=== PATIENT | female | born 1990 | race African-American/Black ===

== ENCOUNTER 2017-02-05 11:49 | Emergency (ER) | payer MEDICAID ==
[2017-02-05] MEDS ORDERED: ONDANSETRON 4 MG TAB.RAPDIS PO ONE (12:10)
--- NOTE | 2017-02-05 12:11 | ER Document Report ---
ED Medical Screen (RME) - General Chief Complaint: Nausea/Vomiting Stated Complaint: STOMACH PAIN Time Seen by Provider: 02/05/17 12:02 Notes: Patient states that she has nausea and vomiting. Abdominal pain. Not sure if she is . Symptoms were very similar when she was with her son. Has had a new partner. They have been together for about 6 months. Having abdominal and pelvic discomfort with increased mental discharge as well. States that the vomiting is getting worse. Cannot keep anything down. TRAVEL OUTSIDE OF THE [place] IN LAST 30 DAYS: No - HPI Onset: Yesterday Onset/Duration: Gradual, Constant, Worse Quality of pain: Achy Severity: Mild Pain Level: 1 Associated Symptoms: Abdominal pain, Vomiting, Other - Vaginal discharge Exacerbated by: Denies Relieved by: Denies Similar symptoms previously: Yes Recently seen / treated by doctor: No - Related Data Allergies/Adverse Reactions: No Known Allergies Allergy (Verified 02/05/17 11:51) Past Medical History - Social History Chew tobacco use (# tins/day): No Frequency of alcohol use: None Drug Abuse: None Renal/ Medical History: Denies: Hx Peritoneal Dialysis Physical Exam - Vital signs Vitals: Temp Pulse Resp BP Pulse Ox 98.0 F 56 L 20 137/60 H 99 02/05/17 11:52 02/05/17 11:52 02/05/17 11:52 02/05/17 11:52 02/05/17 11:52 Interpretation: Normal - General General appearance: Appears well In distress: None - Respiratory Respiratory status: No respiratory distress Breath sounds: Normal - Cardiovascular Rhythm: Regular Heart sounds: Normal auscultation - Abdominal Inspection: Normal Bowel sounds: Normal Tenderness: Tender - Mild diffuse. No guarding or rebound Course - Re-evaluation Re-evalutation: 02/05/17 12:09 I have greeted and performed a rapid initial assessment of this patient. Orders have been placed. A comprehensive ED assessment and evaluation of the patient, analysis of test results and completion of the medical decision making process will be conducted by additional ED providers. 02/05/17 12:11 - Vital Signs Vital signs: Temp Pulse Resp BP Pulse Ox 98.0 F 56 L 20 137/60 H 99 02/05/17 11:52 02/05/17 11:52 02/05/17 11:52 02/05/17 11:52 02/05/17 11:52
[2017-02-05] MEDS ORDERED: NORMAL SALINE 1000 ML 1,000 ML IV ONE (12:35)
[2017-02-05] MEDS ORDERED: ONDANSETRON HCL INJ/PF 4 MG/2 ML SDV IV ONE (12:35)
--- NOTE | 2017-02-05 12:35 | ER Document Report ---
ED GI/ - General Mode of Arrival: Ambulatory Information source: Patient TRAVEL OUTSIDE OF THE [place] IN LAST 30 DAYS: No <CHATO DELUCA - Last Filed: 02/05/17 12:38> <LINDSEY MEDINA - Last Filed: 02/05/17 16:05> - General Chief Complaint: Nausea/Vomiting Stated Complaint: STOMACH PAIN Time Seen by Provider: 02/05/17 12:02 Notes: Patient is a 26-year-old female who presents to the emergency department today with complaints of a 4 day duration of vomiting. Patient states that every time she eats and drinks she vomits shortly after. Patient states her lower abdominal pain began before the vomiting. Patient's last menstrual period was January 02, she is . Patient also mentions that she has had vaginal discharge for 1 week. Patient goes on to mention that vaginal discharge is normal for her however the discharge currently is "more creamy" than usual. Patient states she is constipated. Patient denies any diarrhea or dysuria. ( CHATO DELUCA) - Related Data Allergies/Adverse Reactions: No Known Allergies Allergy (Verified 02/05/17 11:51) Past Medical History - General Information source: Patient - Social History Smoking Status: Smoker,Current Status Unk Cigarette use (# per day): No Chew tobacco use (# tins/day): No Frequency of alcohol use: None Drug Abuse: None Lives with: Family Family History: Reviewed & Not Pertinent Patient has suicidal ideation: No Patient has homicidal ideation: No Pulmonary Medical History: Reports: Hx Asthma Past Surgical History: Reports: Hx Oral Surgery - wisdom teeth <CHATO DELUCA - Last Filed: 02/05/17 12:38> Review of Systems - Review of Systems Constitutional: No symptoms reported EENT: No symptoms reported Cardiovascular: No symptoms reported Respiratory: No symptoms reported Gastrointestinal: See HPI, Abdominal pain, Nausea, Vomiting, Constipation. denies: Diarrhea Genitourinary: See HPI, Discharge. denies: Dysuria Female Genitourinary: Last menstrual period - Jan 02 Musculoskeletal: No symptoms reported Skin: No symptoms reported Hematologic/Lymphatic: No symptoms reported Neurological/Psychological: No symptoms reported -: Yes All other systems reviewed and negative <CHATO DELUCA - Last Filed: 02/05/17 12:38> Physical Exam <CHATO DELUCA - Last Filed: 02/05/17 12:38> <LINDSEY MEDINA - Last Filed: 02/05/17 16:05> - Vital signs Vitals: Temp Pulse Resp BP Pulse Ox 98.0 F 56 L 20 137/60 H 99 02/05/17 11:52 02/05/17 11:52 02/05/17 11:52 02/05/17 11:52 02/05/17 11:52 - Notes Notes: Physical Exam: General: Alert, appears well. HEENT: Normocephalic. Atraumatic. PERRL. Extraocular movements intact. Oropharynx clear. Neck: Supple. Non-tender. Respiratory: No respiratory distress. Clear and equal breath sounds bilaterally. Cardiovascular: Regular rate and rhythm. Abdominal: Lower abdominal tenderness with palpation, RLQ is more tender than LLQ. Suprapubic tenderness with palpation. No distension. Normal Bowel Sounds. Back: Non-tender. No deformity or step off. Extremities: Moves all four extremities. Upper extremities: Normal inspection. Normal ROM. Lower extremities: Normal inspection. No edema. Normal ROM. Neurological: Normal cognition. AAOx4. Normal speech. Psychological: Normal affect. Normal Mood. Skin: Warm. Dry. Normal color. (CHATO DELUCA) Course - Laboratory Result Diagrams: 02/05/17 12:20 02/05/17 12:20 <CHATO DELUCA - Last Filed: 02/05/17 12:38> - Laboratory Result Diagrams: 02/05/17 12:20 02/05/17 12:20 - Diagnostic Test Radiology reviewed: Image reviewed, Reports reviewed - Ultrasound shows a 5 week 6 day intrauterine with a heart rate of 99. There are 2 small subchorionic bleed areas identified. The left ovary is unremarkable, the right ovary is not visualized but there are no abnormalities in that region seen. <LINDSEY MEDINA - Last Filed: 02/05/17 16:05> - Vital Signs Vital signs: Temp Pulse Resp BP Pulse Ox 98.0 F 56 L 20 137/60 H 99 02/05/17 11:52 02/05/17 11:52 02/05/17 11:52 02/05/17 11:52 02/05/17 11:52 - Laboratory Laboratory results interpreted by me: 1102/05/17 02/05/17 12:20 12:20 12:20 Total Bilirubin 1.6 H Serum HCG, Qual POSITIVE H Beta HCG, Quant 20038.00 H Urine Protein Urine Ketones Urine Urobilinogen 02/05/17 13:14 Total Bilirubin Serum HCG, Qual Beta HCG, Quant Urine Protein 30 H Urine Ketones 80 H Urine Urobilinogen 2.0 H Discharge <CHATO DELUCA - Last Filed: 02/05/17 12:38> <LINDSEY MEDINA - Last Filed: 02/05/17 16:05> - Discharge Clinical Impression: 6 weeks gestation of , Dehydration, Pelvic pain affecting in first trimester, antepartum Subchorionic hemorrhage in first trimester Qualifiers: Fetus number: single or unspecified fetus Qualified Code(s): O41.8X10 - Other specified disorders of amniotic fluid and membranes, first trimester, not applicable or unspecified Nausea & vomiting Qualifiers: Vomiting type: unspecified Vomiting Intractability: non-intractable Qualified Code(s): R11.2 - Nausea with vomiting, unspecified Condition: Stable Disposition: HOME, SELF-CARE Additional Instructions: Hyperemesis Gravidarum Hyperemesis gravidarum is the medical term for severe vomiting during . We don't know exactly why it occurs, but it's a common problem. Dehydration can occur. This reduces blood flow to the placenta, decreasing the baby's nourishment. The baby will also become dehydrated. There can be harmful changes in blood sodium, potassium, or acid balance. Our goal is to correct, and prevent, dehydration. For severe cases, we give IV fluids. Antinausea medication will be prescribed. (Don't be concerned about " defects" -- the risk to you and your baby from the hyperemesis is the biggest problem. The antinausea medication is very safe at this stage of .) Call the doctor if you have vaginal bleeding, abdominal pain, severe lightheadedness or weakness, or other alarming symptoms. You are . care is best started as early in as possible. If you're unsure about continuing this , you should discuss this with your physician or with surgical manager at [facility]. You should take only medications approved by your physician. Acetaminophen can safely be taken for minor pains. As a rule, medication for chronic conditions such as asthma or seizures can safely be continued. You should discuss with the physician every medicine you take. Any regular exercise program can be continued. Talk to your physician, however, before engaging in competitive or demanding sports. Alcohol, smoking, and "street drugs" are dangerous to your baby. Cocaine is especially dangerous. Don't use any illicit drugs! Bleeding During Early Your ultrasound shows 2 small areas of subchorionic hemorrhage. This is bleeding that occurs around the attachment of the baby to the inner wall of the uterus. While we take this symptom very seriously, most women with your degree of bleeding will go on to have a perfectly normal baby. At this time, there is no indication that a miscarriage will occur. (A miscarriage occurs when the fetus is abnormal. There is no medicine or treatment to prevent it.) You should rest in bed until the pelvic pain resolves. Do not douche or have sex for at least a week, or until OK'd by the doctor. Don't use tampons. Call the doctor or return for re-examination if there is an increase in bleeding or cramping, extreme weakness, fainting, new abdominal pain, fever, or passage of tissue. //////////////////////////////////////////////////////////////////////////////// //////////////////////////////////////////////////////////////////////////////// ///////////////// Take the medication as prescribed for nausea and vomiting. Drink plenty of cool clear liquids. Rest. Take Tylenol for pain if needed. With the health department on Thursday to start your care. RETURN TO THE EMERGENCY ROOM IF ANY NEW OR WORSENING SYMPTOMS. Prescriptions: Metoclopramide HCl [Reglan 10 mg Tablet] 1 tab PO ASDIR PRN #20 tablet PRN Reason: Scribe Attestation: 02/05/17 13:43 I personally performed the services described in the documentation, reviewed and edited the documentation which was dictated to the scribe in my presence, and it accurately records my words and actions. (LINDSEY MEDINA) Scribe Documentation - Scribe Written by Scribe:: Tracy Lewis, 02/05/2017 1256 acting as scribe for :: Ana <CHATO DELUCA - Last Filed: 02/05/17 12:38>
[2017-02-05 12:38] LABS: ABSOLUTE EOSINOPHILS # (AUTO) 0.1 10^3/uL (0.0-0.6); ABSOLUTE LYMPHOCYTES (AUTO) 1.3 10^3/uL (0.5-4.7); ABSOLUTE MONOCYTES (AUTO) 0.5 10^3/uL (0.1-1.4); ABSOLUTE NEUT (AUTO) 4.6 10^3/uL (1.7-8.2); BASOPHILS % (AUTO) 0.2 % (0-2); EOSINOPHILS % (AUTO) 1.2 % (0-6); HEMATOCRIT 36.7 % (36.0-47.0); HEMOGLOBIN 12.1 g/dL (12.0-15.5); HGB HCT DIFFERENCE -0.4; LYMPHOCYTES % (AUTO) 19.6 % (13-45); MEAN CORPUSCULAR HEMOGLOBIN 28.2 pg (27.0-33.4); MEAN CORPUSCULAR VOLUME 86 fl (80-97); MONOCYTES % (AUTO) 7.8 % (3-13); RED BLOOD COUNT 4.29 10^6/uL (3.72-5.28); RED CELL DISTRIBUTION WIDTH 13.3 % (11.5-14.0); SEGMENTED NEUTROPHILS % (AUTO) 71.2 % (42-78); WHITE BLOOD COUNT 6.4 10^3/uL (4.0-10.5)
[2017-02-05 13:00] LABS: ALANINE AMINOTRANSFERASE 33 U/L (9-52); ALBUMIN 4.7 g/dL (3.5-5.0); ALKALINE PHOSPHATASE 94 U/L (38-126); ANION GAP 15 (5-19); ASPARTATE AMINO TRANSFERASE 16 U/L (14-36); BILIRUBIN,DIRECT 0.4 mg/dL (0.0-0.4); BILIRUBIN,TOTAL 1.6 mg/dL (0.2-1.3); BLOOD UREA NITROGEN 8 mg/dL (7-20); CALCIUM 9.7 mg/dL (8.4-10.2); CARBON DIOXIDE 25 mmol/L (22-30); CHLORIDE 101 mmol/L (98-107); CREATININE RESULT 0.64 mg/dL (0.52-1.25); GLUCOSE 81 mg/dL (75-110); LIPASE 31.4 U/L (23-300); POTASSIUM 3.7 mmol/L (3.6-5.0); SODIUM 140.6 mmol/L (137-145); TOTAL PROTEIN 7.9 g/dL (6.3-8.2)
[2017-02-05 13:19] LABS: ADD ON TESTING BLD IN LAB ACKNOWLEDGE
[2017-02-05 13:45] LABS: APPEARANCE,URINE SLIGHTLY-CLOUDY; BILIRUBIN,URINE NEGATIVE (NEGATIVE); GLUCOSE, URINE NEGATIVE (NEGATIVE); KETONES,URINE 80 mg/dL (NEGATIVE); LEUKOCYTE ESTERASE,URINE NEGATIVE (NEGATIVE); NITRITE,URINE NEGATIVE (NEGATIVE); PROTEIN,URINE 30 mg/dL (NEGATIVE); URINE SPECIFIC GRAVITY 1.029
[2017-02-05] MEDS ORDERED: DEXTROSE 5%-LACTATED RINGERS 1,000 ML IV ONE ×2 (13:53→15:11)
--- NOTE | 2017-02-05 14:38 | RADIOLOGY REPORT (SQ) ---
EXAM DESCRIPTION: U/S OB TRANSVAGINAL W/O DOP COMPLETED DATE/TIME: 02/05/2017 2:18 pm REASON FOR STUDY: Pelvic pain, vomiting COMPARISON: None TECHNIQUE: Transvaginal static and realtime grayscale images acquired of the pelvis. Additional chata cted spectral and color Doppler images recorded. All images stored on PACs. [id number] LIMITATIONS: None. FINDINGS: FETUS: Living intrauterine . EGA: 5 weeks 6 days AMINA: 10/02/2017 FHR: 99 beats per minute. SUBCHORIONIC BLEED: Yes SIZE OF BLEED: 2 areas. Largest 0.9 cm. UTERUS: No masses. No anomalies. CERVICAL LENGTH: 3 cm Closed. RIGHT ADNEXA: Ovary not identified. No adnexal free fluid. No adnexal masses. LEFT ADNEXA: Normal ovary with normal vascular flow. No adnexal free fluid. No adnexal masses. FREE FLUID: None. OTHER: No other significant finding. IMPRESSION: LIVING INTRAUTERINE . EGA 5 weeks 6 days. Subchorionic hemorrhage. Trimester of : First - 0 to 13 weeks. TECHNICAL DOCUMENTATION: JOB ID: [id number] [employer]- All Rights Reserved
[2017-02-05 15:04] LABS: CHLAM PCR NOT DETECTED (NOT DETECT)
[2017-02-05] MEDS ORDERED: METOCLOPRAMIDE HCL INJ/PF 10 MG/2 ML SDV IV ONE (15:21)
[2017-02-05 16:11] VITALS: BP 128/76
== END 2017-02-05 16:10 | disposition home or self-care (01) ==
LOC: ER 11:49
DX: O41.8X10 Other specified disorders of amniotic fluid and membranes, first trimester, not applicable or unspecified (principal); O21.9 Vomiting of pregnancy, unspecified; E86.0 Dehydration; R10.84 Generalized abdominal pain; R10.2 Pelvic and perineal pain; O99.331 Smoking (tobacco) complicating pregnancy, first trimester; Z3A.01 Less than 8 weeks gestation of pregnancy
CPT/HCPCS: 99284; 96361; 96374; 96375; 86900; 86901; 36415; 84702; 83690; 84703; 85025; 80053; 81001; 87491; 87591; 76817; S0119; J2765; J2405; J7030

== ENCOUNTER 2017-02-07 13:06 | Emergency (ER) | payer MEDICAID ==
[2017-02-07] MEDS ORDERED: NORMAL SALINE 1000 ML 1,000 ML IV ONE (13:40)
[2017-02-07 14:15] LABS: ABSOLUTE LYMPHOCYTES (AUTO) 1.1 10^3/uL (0.5-4.7); ABSOLUTE MONOCYTES (AUTO) 0.4 10^3/uL (0.1-1.4); ABSOLUTE NEUT (AUTO) 4.7 10^3/uL (1.7-8.2); BASOPHILS % (AUTO) 0.2 % (0-2); EOSINOPHILS % (AUTO) 0.7 % (0-6); HEMATOCRIT 36.6 % (36.0-47.0); HEMOGLOBIN 12.3 g/dL (12.0-15.5); HGB HCT DIFFERENCE 0.3; LYMPHOCYTES % (AUTO) 17.7 % (13-45); MEAN CORPUSCULAR HEMOGLOBIN 28.7 pg (27.0-33.4); MEAN CORPUSCULAR HGB CONC 33.7 g/dL (32.0-36.0); MEAN CORPUSCULAR VOLUME 85 fl (80-97); MONOCYTES % (AUTO) 6.8 % (3-13); RED CELL DISTRIBUTION WIDTH 13.3 % (11.5-14.0); SEGMENTED NEUTROPHILS % (AUTO) 74.6 % (42-78); WHITE BLOOD COUNT 6.3 10^3/uL (4.0-10.5)
[2017-02-07 14:30] LABS: ALANINE AMINOTRANSFERASE 29 U/L (9-52); ALBUMIN 4.6 g/dL (3.5-5.0); ALKALINE PHOSPHATASE 85 U/L (38-126); ANION GAP 16 (5-19); ASPARTATE AMINO TRANSFERASE 15 U/L (14-36); BILIRUBIN,DIRECT 0.4 mg/dL (0.0-0.4); BILIRUBIN,TOTAL 1.4 mg/dL (0.2-1.3); BLOOD UREA NITROGEN 6 mg/dL (7-20); CALCIUM 9.8 mg/dL (8.4-10.2); CARBON DIOXIDE 26 mmol/L (22-30); CHLORIDE 99 mmol/L (98-107); CREATININE RESULT 0.63 mg/dL (0.52-1.25); GLUCOSE 83 mg/dL (75-110); LIPASE 29.6 U/L (23-300); POTASSIUM 3.7 mmol/L (3.6-5.0); SODIUM 141.4 mmol/L (137-145); TOTAL PROTEIN 7.9 g/dL (6.3-8.2)
[2017-02-07] MEDS ORDERED: PROCHLORPERAZINE EDISYLATE INJ 10 MG/2 ML VIAL IV ONE (15:05)
[2017-02-07] MEDS ORDERED: ACETAMINOPHEN 325 MG TABLET PO ONE (15:08)
[2017-02-07 15:15] VITALS: BP 111/73
--- NOTE | 2017-02-07 15:16 | ER Document Report ---
ED General - General Chief Complaint: Abdominal Pain Stated Complaint: ABDOMINAL PAIN Time Seen by Provider: 02/07/17 13:37 TRAVEL OUTSIDE OF THE [place] IN LAST 30 DAYS: No - HPI Patient complains to provider of: Abdominal pain nausea vomiting Notes: Patient was seen approximate 2 days ago for abdominal pain nausea vomiting had ultrasounds confirming IUP. Patient states pain is continued no change in pain however continues to have nausea vomiting therefore came back into the ER. Patient states no relief of medication prescribed upon last visit. Denies any fever chills chest pain vaginal discharge vaginal bleeding. Patient is resting comfortably no signs of obvious distress upon my evaluation. - Related Data Allergies/Adverse Reactions: No Known Allergies Allergy (Verified 02/07/17 13:13) Past Medical History - Social History Smoking Status: Never Smoker Chew tobacco use (# tins/day): No Frequency of alcohol use: None Drug Abuse: None Family History: Reviewed & Not Pertinent Patient has suicidal ideation: No Patient has homicidal ideation: No Pulmonary Medical History: Reports: Hx Asthma Renal/ Medical History: Denies: Hx Peritoneal Dialysis Past Surgical History: Reports: Hx Oral Surgery - wisdom teeth Review of Systems - Review of Systems Constitutional: No symptoms reported EENT: No symptoms reported Cardiovascular: No symptoms reported Respiratory: No symptoms reported Gastrointestinal: Abdominal pain, Diarrhea, Nausea, Vomiting Genitourinary: No symptoms reported Female Genitourinary: No symptoms reported Musculoskeletal: No symptoms reported Skin: No symptoms reported Hematologic/Lymphatic: No symptoms reported Neurological/Psychological: No symptoms reported Physical Exam - Vital signs Vitals: Temp Pulse Resp BP Pulse Ox 98.6 F 58 L 16 133/68 H 100 02/07/17 13:09 02/07/17 13:09 02/07/17 13:09 02/07/17 13:09 02/07/17 13:09 Interpretation: Normal - General General appearance: Appears well, Alert - HEENT Head: Normocephalic, Atraumatic Eyes: Normal Pupils: PERRL - Respiratory Respiratory status: No respiratory distress Chest status: Nontender Breath sounds: Normal Chest palpation: Normal - Cardiovascular Rhythm: Regular Heart sounds: Normal auscultation Murmur: No - Abdominal Inspection: Normal Distension: No distension Bowel sounds: Normal Tenderness: Nontender Organomegaly: No organomegaly - Back Back: Normal, Nontender - Extremities General upper extremity: Normal inspection, Nontender, Normal color, Normal ROM , Normal temperature General lower extremity: Normal inspection, Nontender, Normal color, Normal ROM , Normal temperature, Normal weight bearing. No: Nirav's sign - Neurological Neuro grossly intact: Yes Cognition: Normal Orientation: AAOx4 Santos Coma Scale Eye Opening: Spontaneous Santos Coma Scale Verbal: Oriented Santos Coma Scale Motor: Obeys Commands Santos Coma Scale Total: 15 Speech: Normal Motor strength normal: LUE, RUE, LLE, RLE Sensory: Normal - Psychological Associated symptoms: Normal affect, Normal mood - Skin Skin Temperature: Warm Skin Moisture: Dry Skin Color: Normal Course - Re-evaluation Re-evalutation: 02/07/17 18:54 The patient presents with abdominal pain nausea vomiting without signs of peritonitis or other life-threatening or serious etiology. The patient appears stable for discharge and has been instructed to return immediately if the symptoms worsen in any way, or in 8-12hr if not improved for re-evaluation. The patient has been instructed to return if the symptoms worsen or change in any way. - Vital Signs Vital signs: Temp Pulse Resp BP Pulse Ox 98.7 F 60 18 111/73 100 02/07/17 15:14 02/07/17 15:14 02/07/17 15:14 02/07/17 15:14 02/07/17 15:14 - Laboratory Result Diagrams: 02/07/17 13:55 02/07/17 13:55 Laboratory results interpreted by me: 02/07/17 13:55 BUN 6 L Total Bilirubin 1.4 H Discharge - Discharge Clinical Impression: Pelvic pain affecting in first trimester, antepartum Nausea & vomiting Qualifiers: Vomiting type: unspecified Vomiting Intractability: unspecified Qualified Code( s): R11.2 - Nausea with vomiting, unspecified Condition: Good Disposition: HOME, SELF-CARE Instructions: Nausea or Vomiting, Nonspecific ([facility]), Pelvic Pain in ( [facility]), ([facility]) Additional Instructions: Your laboratory studies today do not show any signs of critical pathology. Please take medication for nausea he also try them below for nausea control. Please follow-up with [facility] or the health department for further evaluation. For nausea and vomiting during I recomment: Start with 10-12.5 mg of pyridoxine (vitamin B6) three times a day for 2 days. If not fully effective, Increase to 12.5 mg of pyridoxine four times a day for 2 days. If not fully effective, Increase to 25 mg of pyridoxine three times a day for 2 days. If not fully effective, Continue 25 mg pyridoxine 3 times a day, and add 12.5 mg of doxylamine before bedtime each day for 2 days. If not fully effective, Continue 25 mg pyridoxine 3 times a day, and take 12.5 mg of doxylamine twice a day. If not fully effective, Continue 25 mg pyridoxine 3 times a day, and take 12.5 mg of doxylamine three times a day. If not fully effective, Continue 25 mg pyridoxine 3 times a day, and 12.5 mg of doxylamine 3 times a day , while adding Emetrol, one to two tablespoons (15-30 cc) taken once or twice a day as needed. (Emetrol is an [id number] mixture of sugar syrups and phosphoric acid [phosphorylated carbohydrate solution]) that acts by soothing the actual wall of the gastrointestinal tract). If not fully effective, Consult with your doctor. Prescriptions: Promethazine HCl [Phenergan 25 mg Supp.rect] 1 supp CO Q6H #12 supp.rect Forms: Return to Work
== END 2017-02-07 15:19 | disposition home or self-care (01) ==
LOC: ER 13:06
DX: O26.91 Pregnancy related conditions, unspecified, first trimester (principal); R10.2 Pelvic and perineal pain; O21.9 Vomiting of pregnancy, unspecified; Z3A.00 Weeks of gestation of pregnancy not specified
CPT/HCPCS: 99284; 96361; 96374; 36415; 83690; 85025; 80053; J0780; J7030

== ENCOUNTER 2017-02-09 20:56 | Emergency (ER) | payer SELFPAY ==
[2017-02-10] MEDS ORDERED: ONDANSETRON HCL INJ/PF 4 MG/2 ML SDV IV ONE (00:21)
[2017-02-10] MEDS ORDERED: NORMAL SALINE 1000 ML 1,000 ML IV PRN (00:21)
[2017-02-10] MEDS ORDERED: MINERAL OIL 30 ML UDCUP PR ONE (00:22)
--- NOTE | 2017-02-10 00:22 | ER Document Report ---
ED GI/ - General Chief Complaint: Vomiting Stated Complaint: VOMITING Time Seen by Provider: 02/09/17 23:50 Notes: Patient is a 6 week 3 day 26-year-old female who returns emergency department complaining of nausea, vomiting and constipation. Patient states that her last normal bowel movement was 2 weeks ago. States she has not been passing gas. States she has been previously evaluated here twice and discharged home with nausea medication but she has not filled any of her prescriptions due to expense out of pocket. Patient is not from the area. She is medicated up in [place] and is due to [facility] otherwise denies any fever, chills. States that she still able to urinate, denies any hematuria, pyuria, urinary frequency, retention. TRAVEL OUTSIDE OF THE [place].S[place] IN LAST 30 DAYS: No - Related Data Allergies/Adverse Reactions: No Known Allergies Allergy (Verified 02/09/17 21:12) Past Medical History - Social History Smoking Status: Never Smoker Family History: Reviewed & Not Pertinent Patient has suicidal ideation: No Patient has homicidal ideation: No Pulmonary Medical History: Reports: Hx Asthma Renal/ Medical History: Denies: Hx Peritoneal Dialysis Past Surgical History: Reports: Hx Oral Surgery - wisdom teeth Review of Systems - Review of Systems Constitutional: No symptoms reported EENT: No symptoms reported Cardiovascular: No symptoms reported Respiratory: No symptoms reported Gastrointestinal: See HPI Female Genitourinary: No symptoms reported -: Yes All other systems reviewed and negative Physical Exam - Vital signs Vitals: Temp Pulse Resp BP Pulse Ox 99.1 F 82 18 132/91 H 98 02/09/17 21:13 02/09/17 21:13 02/09/17 21:13 02/09/17 21:13 02/09/17 21:13 - Notes Notes: PHYSICAL EXAM GENERAL: Alert, interacts well. ENT: Oral mucosa moist, tongue midline. NECK: Full range of motion. Supple. Trachea midline. LUNGS: Clear to auscultation bilaterally, no wheezes, rales, or rhonchi. No respiratory distress. HEART: Regular rate and rhythm. No murmurs, gallops, or rubs. ABDOMEN: Soft, nondistended, mild epigastric tenderness. No guarding, rebound, or rigidity.. Bowel sounds present in all 4 quadrants. EXTREMITIES: Moves all 4 extremities spontaneously. No edema, radial and dorsalis pedis pulses 2/4 bilaterally. No cyanosis. NEUROLOGICAL: Alert and oriented x4. Normal speech. PSYCH: Normal affect, normal mood. SKIN: Warm, dry, normal turgor. No rashes or lesions noted. Course - Re-evaluation Re-evalutation: 02/10/17 03:35 Patient is a 26-year-old female who is hemodynamically stable, no acute distress and afebrile. Patient returns again with nausea and vomiting since she has not been able to fill her prescriptions for antinausea medication. Patient was able to have a bowel movement after enema in the department and states she feels much better. Discussed with her a plan for clear liquid diet for a couple of days to allow for bowel rest and to utilize antinausea medication. Patient to follow-up with her [employer] on February 14 when she returns home to [place]. Otherwise patient is tolerating p.o. without any difficulty and is stable for discharge home. - Vital Signs Vital signs: Temp Pulse Resp BP Pulse Ox 98.2 F 64 17 109/65 100 02/10/17 04:18 02/10/17 04:18 02/10/17 04:18 02/10/17 04:18 02/10/17 04:18 - Laboratory Result Diagrams: 02/10/17 01:00 02/10/17 01:00 Laboratory results interpreted by me: 02/10/17 02/10/17 01:00 01:00 WBC 11.1 H Seg Neutrophils % 86.0 H Lymphocytes % 7.5 L Absolute Neutrophils 9.5 H Carbon Dioxide 20 L Anion Gap 22 H Glucose 70 L Calcium 10.3 H Total Bilirubin 1.7 H Direct Bilirubin 0.5 H Total Protein 8.9 H Albumin 5.3 H Beta HCG, Quant 133359.00 H Discharge - Discharge Clinical Impression: Nausea & vomiting Qualifiers: Vomiting type: unspecified Vomiting Intractability: non-intractable Qualified Code(s): R11.2 - Nausea with vomiting, unspecified Condition: Good Disposition: HOME, SELF-CARE Instructions: Antinausea Medication ([facility]) Additional Instructions: ABDOMINAL PAIN: There are many causes of abdominal pain. Pain can mean a serious problem requiring surgery (such as appendicitis). It can also be an innocent problem that goes away on its own (such as a viral infection). Often, time must pass to determine the cause of pain. The physician does not feel that hospitalization is necessary, at present. Things may change within the next 24 hours. Call the doctor or come back for re- examination if any problems occur, such as: (1) Pain that becomes more severe, steady, or becomes concentrated in one specific area. Also, pain that is more severe with movement or coughing. (2) Vomiting that persists or becomes more frequent. (3) Blood in the vomitus, urine, or bowel movements. Blood in the stool may have a tarry or black appearance. (4) Shaking chills or fever greater than 100 degrees F. (5) The abdomen becomes more distended or swollen. (6) Bowel movements cease. (7) Failure to improve as expected. NORMAL EXAM AND WORKUP: At this time, your examination and workup show no significant abnormality. No significant abnormal physical findings are noted. All laboratory, EKG, and imaging (x-ray, CT scans, ultrasound) studies that were ordered show no significant abnormality. Although your examination and all studies that were ordered showed no significant abnormal finding, there are no examinations and no studies that are 100% accurate. There is always the possibility that some abnormality could exist and not be detected with physical examination or within the limits and capabilities of laboratory and other studies. You should return or follow up as you were instructed on your visit today for further evaluation if your symptoms do not resolve. CONSTIPATION: Constipation is a common problem. It is especially likely as you get older. Constipation is a common cause of abdominal pain, but sometimes causes no symptoms at all. Causes of constipation include certain medications, dehydration, diets, inactivity, and low-fiber intake. Rarely, it can be a symptom of underlying disease. The physician has evaluated you for this. Avoid constipation by eating a diet high in fiber, fruits, and vegetables. Drink plenty of liquids. Get regular exercise. If possible, avoid constipating medicines like narcotic pain medication. Some vitamin tablets can cause constipation. Stool softeners may be needed for difficult cases. An excellent stool softener is Konsyl which is available at [employer], and [employer]. Just add a teaspoon to a glass of pineapple or orange juice daily or twice a day if needed. For acute constipation, Fleet's Enemas and Dulcolax suppositories are helpful. Chronic, manager intermediate use of laxatives or enemas is not a good idea. Your bowel may become dependant on them. You do not need to have a bowel movement every day. Many people do fine with a bowel movement every three or four days. You should call your doctor or return for re-evaluation if you pass blood in the stool, or if you develop fever or increasing abdominal pain. FOLLOW-UP CARE: If you have been referred to a physician for follow-up care, call the physician s office for an appointment as you were instructed or within the next two days. If you experience worsening or a significant change in your symptoms, notify the physician immediately or return to the Emergency Department at any time for re-evaluation.
[2017-02-10 01:14] LABS: ABSOLUTE LYMPHOCYTES (AUTO) 0.8 10^3/uL (0.5-4.7); ABSOLUTE MONOCYTES (AUTO) 0.7 10^3/uL (0.1-1.4); ABSOLUTE NEUT (AUTO) 9.5 10^3/uL (1.7-8.2); BASOPHILS % (AUTO) 0.3 % (0-2); EOSINOPHILS % (AUTO) 0.1 % (0-6); HEMATOCRIT 40.9 % (36.0-47.0); HEMOGLOBIN 13.8 g/dL (12.0-15.5); HGB HCT DIFFERENCE 0.5; LYMPHOCYTES % (AUTO) 7.5 % (13-45); MEAN CORPUSCULAR HEMOGLOBIN 28.7 pg (27.0-33.4); MEAN CORPUSCULAR HGB CONC 33.8 g/dL (32.0-36.0); MEAN CORPUSCULAR VOLUME 85 fl (80-97); MONOCYTES % (AUTO) 6.1 % (3-13); RED BLOOD COUNT 4.82 10^6/uL (3.72-5.28); RED CELL DISTRIBUTION WIDTH 13.1 % (11.5-14.0); WHITE BLOOD COUNT 11.1 10^3/uL (4.0-10.5)
[2017-02-10 01:37] LABS: ALANINE AMINOTRANSFERASE 25 U/L (9-52); ALBUMIN 5.3 g/dL (3.5-5.0); ALKALINE PHOSPHATASE 105 U/L (38-126); ASPARTATE AMINO TRANSFERASE 17 U/L (14-36); BILIRUBIN,DIRECT 0.5 mg/dL (0.0-0.4); BILIRUBIN,TOTAL 1.7 mg/dL (0.2-1.3); BLOOD UREA NITROGEN 8 mg/dL (7-20); CALCIUM 10.3 mg/dL (8.4-10.2); CARBON DIOXIDE 20 mmol/L (22-30); CREATININE RESULT 0.54 mg/dL (0.52-1.25); GLUCOSE 70 mg/dL (75-110); LIPASE 41.1 U/L (23-300); POTASSIUM 3.8 mmol/L (3.6-5.0); TOTAL PROTEIN 8.9 g/dL (6.3-8.2)
[2017-02-10] MEDS ORDERED: LIDOCAINE 2% VISCOUS SOLN 20 ML UDCUP PO ONE (02:11)
[2017-02-10] MEDS ORDERED: MAG HYDROX/AL HYDROX/SIMETH SUSP 30 ML UDCUP PO ONE (02:11)
[2017-02-10] MEDS ORDERED: FAMOTIDINE 20 MG TABLET PO ONE (02:12)
[2017-02-10 02:13] LABS: CHLORIDE 100 mmol/L (98-107); SODIUM 142.4 mmol/L (137-145)
[2017-02-10 02:21] LABS: ANION GAP 22 (5-19)
[2017-02-10] MEDS ORDERED: ONDANSETRON ODT 4 MG TAB (6 TAB/DSPK) PO PRN (03:37)
[2017-02-10 04:26] VITALS: BP 109/65
== END 2017-02-10 04:41 | disposition home or self-care (01) ==
LOC: ER 20:56
DX: R11.2 Nausea with vomiting, unspecified (principal); K59.00 Constipation, unspecified
CPT/HCPCS: 99284; 96361; 96374; 36415; 84702; 83690; 85025; 80053; J3490 ×2; J2405; J7030

== ENCOUNTER 2017-02-13 13:14 | Inpatient (IN) | payer SELFPAY ==
[2017-02-13] MEDS ORDERED: NORMAL SALINE 1000 ML 2,000 ML IV ONE (16:20)
--- NOTE | 2017-02-13 16:20 | ER Document Report ---
ED GI/ - General Chief Complaint: Nausea/Vomiting Stated Complaint: VOMITING Time Seen by Provider: 02/13/17 16:20 Notes: 26 yo female 7 weeks , with vomiting for a week, seen 02/09 - 1 liter NS given. enema given was able to have BM. Still feels like she is constipated. Burning in esophogus area with of sensation of something stuck in lower esophogus. over the counter B6 did not help. No hx hyperemesis gravidarum with her son. Visiting from [facility]. Going back to [facility] next week hopefully. Spotting Vaginal bleeding 2 days ago, 4th time 1 week. Had US 02-05 5 week 6 day viable fetus. A positive blood on that date. No bleeding today. Whole upper abdomen hurts. Surgery: 2 abortions, wisdom teeth removal. TRAVEL OUTSIDE OF THE [place] IN LAST 30 DAYS: No - Related Data Allergies/Adverse Reactions: No Known Allergies Allergy (Verified 02/13/17 13:17) Home Medications: Current Home Medications No Home Medications 02/13/17 [History] Past Medical History - General Information source: Patient - Social History Smoking Status: Never Smoker Chew tobacco use (# tins/day): No Frequency of alcohol use: None Drug Abuse: None Lives with: Spouse/Significant other Family History: Reviewed & Not Pertinent Patient has suicidal ideation: No Patient has homicidal ideation: No Pulmonary Medical History: Reports: Hx Asthma Renal/ Medical History: Denies: Hx Peritoneal Dialysis Past Surgical History: Reports: Hx Oral Surgery - wisdom teeth Review of Systems - Review of Systems Constitutional: No symptoms reported EENT: No symptoms reported Cardiovascular: No symptoms reported Respiratory: No symptoms reported Gastrointestinal: See HPI Genitourinary: Dysuria Female Genitourinary: No symptoms reported Musculoskeletal: No symptoms reported Skin: No symptoms reported Hematologic/Lymphatic: No symptoms reported Neurological/Psychological: No symptoms reported Physical Exam - Vital signs Vitals: Temp Pulse Resp BP Pulse Ox 97.7 F 112 H 18 115/88 H 97 02/13/17 13:23 02/13/17 13:23 02/13/17 13:23 02/13/17 13:23 02/13/17 13:23 Interpretation: Normal - General General appearance: Alert Notes: looks dry - HEENT Head: Normocephalic, Atraumatic Eyes: Normal Pupils: PERRL Tympanic membrane: No: Injected Mucous membranes: Dry Neck: Normal - Respiratory Respiratory status: No respiratory distress Chest status: Nontender Breath sounds: Normal Chest palpation: Normal - Cardiovascular Rhythm: Regular Heart sounds: Normal auscultation Murmur: No - Abdominal Inspection: Normal Distension: No distension Bowel sounds: Normal Tenderness: Tender - upper all the way across Organomegaly: No organomegaly - Back Back: Normal, Nontender. No: CVA tenderness - Extremities General upper extremity: Normal inspection, Nontender, Normal color, Normal ROM , Normal temperature General lower extremity: Normal inspection, Nontender, Normal color, Normal ROM , Normal temperature, Normal weight bearing. No: Nirav's sign - Neurological Neuro grossly intact: Yes Cognition: Normal Orientation: AAOx4 Santos Coma Scale Eye Opening: Spontaneous Santos Coma Scale Verbal: Oriented [place] Coma Scale Motor: Obeys Commands [place] Coma Scale Total: 15 Speech: Normal Motor strength normal: LUE, RUE, LLE, RLE Sensory: Normal - Psychological Associated symptoms: Normal affect, Normal mood - Skin Skin Temperature: Warm Skin Moisture: Dry Skin Color: Normal Course - Re-evaluation Re-evalutation: 02/13/17 21:11 Patient does not feel much better has not vomited with a few ice chips, 2nd liter NS infusing, urinalysis shows urinary tract infection. Spoke with dr. marks who will admit to post 23 hour observation as pt has not improved. 02/13/17 21:54 Dr. Marks called and wants a transvaginal ultrasound done now before she goes up to , I called US and they can take her now.Notified Magaly who will tell the nurse. - Vital Signs Vital signs: Temp Pulse Resp BP Pulse Ox 98.2 F 55 L 15 107/59 L 100 02/14/17 16:30 02/14/17 16:30 02/14/17 16:30 02/14/17 16:30 02/14/17 16:30 - Laboratory Result Diagrams: 02/14/17 06:49 02/14/17 06:49 Laboratory results interpreted by me: 02/13/17 02/13/17 02/13/17 16:50 16:50 19:50 WBC 13.6 H Seg Neutrophils % 82.9 H Lymphocytes % 8.5 L Absolute Neutrophils 11.3 H Carbon Dioxide 17 L Anion Gap 24 H Calcium 11.8 H Total Bilirubin 1.8 H Direct Bilirubin 0.6 H Total Protein 9.9 H Albumin 5.5 H Urine Protein >=500 H Urine Ketones 80 H Discharge - Discharge Clinical Impression: Hyperemesis gravidarum, Urinary tract infection Condition: Fair Disposition: ADMITTED OBSERVATION Admitting Provider: [facility] Admitted: Post
[2017-02-13] MEDS ORDERED: METOCLOPRAMIDE HCL INJ/PF 10 MG/2 ML SDV IV ONE (16:22)
[2017-02-13] MEDS ORDERED: DIPHENHYDRAMINE HCL 50 MG/ML VIAL IV ONE ×2 (16:22→18:17)
[2017-02-13] MEDS ORDERED: FAMOTIDINE INJ/PF 20 MG/2 ML SDV IV ONE (16:26)
[2017-02-13] MEDS ORDERED: MAG HYDROX/AL HYDROX/SIMETH SUSP 30 ML UDCUP PO ONE (16:26)
[2017-02-13] MEDS ORDERED: LIDOCAINE 2% VISCOUS SOLN 20 ML UDCUP PO ONE (16:26)
[2017-02-13 17:07] LABS: ABSOLUTE LYMPHOCYTES (AUTO) 1.2 10^3/uL (0.5-4.7); ABSOLUTE MONOCYTES (AUTO) 1.1 10^3/uL (0.1-1.4); ABSOLUTE NEUT (AUTO) 11.3 10^3/uL (1.7-8.2); BASOPHILS % (AUTO) 0.4 % (0-2); EOSINOPHILS % (AUTO) 0.1 % (0-6); HEMATOCRIT 43.9 % (36.0-47.0); HEMOGLOBIN 14.9 g/dL (12.0-15.5); HGB HCT DIFFERENCE 0.8; LYMPHOCYTES % (AUTO) 8.5 % (13-45); MEAN CORPUSCULAR HEMOGLOBIN 28.3 pg (27.0-33.4); MEAN CORPUSCULAR HGB CONC 33.9 g/dL (32.0-36.0); MEAN CORPUSCULAR VOLUME 83 fl (80-97); MONOCYTES % (AUTO) 8.1 % (3-13); RED BLOOD COUNT 5.26 10^6/uL (3.72-5.28); RED CELL DISTRIBUTION WIDTH 13.5 % (11.5-14.0); SEGMENTED NEUTROPHILS % (AUTO) 82.9 % (42-78); WHITE BLOOD COUNT 13.6 10^3/uL (4.0-10.5)
[2017-02-13 17:26] LABS: ALANINE AMINOTRANSFERASE 29 U/L (9-52); ALBUMIN 5.5 g/dL (3.5-5.0); ALKALINE PHOSPHATASE 119 U/L (38-126); ASPARTATE AMINO TRANSFERASE 16 U/L (14-36); BILIRUBIN,DIRECT 0.6 mg/dL (0.0-0.4); BILIRUBIN,TOTAL 1.8 mg/dL (0.2-1.3); BLOOD UREA NITROGEN 14 mg/dL (7-20); CALCIUM 11.8 mg/dL (8.4-10.2); CREATININE RESULT 0.71 mg/dL (0.52-1.25); GLUCOSE 93 mg/dL (75-110); LIPASE 52.1 U/L (23-300); TOTAL PROTEIN 9.9 g/dL (6.3-8.2)
[2017-02-13 17:34] LABS: CARBON DIOXIDE 17 mmol/L (22-30); CHLORIDE 99 mmol/L (98-107); POTASSIUM 3.8 mmol/L (3.6-5.0); SODIUM 140.2 mmol/L (137-145)
[2017-02-13 17:38] LABS: ANION GAP 24 (5-19)
[2017-02-13] MEDS ORDERED: DEXAMETHASONE SOD PHOS INJ 10 MG/1 ML VIAL IV ONE (18:17)
[2017-02-13] MEDS ORDERED: NORMAL SALINE 1000 ML 1,000 ML IV ONE (19:53)
[2017-02-13 20:19] LABS: APPEARANCE,URINE CLOUDY; BILIRUBIN,URINE NEGATIVE (NEGATIVE); GLUCOSE, URINE NEGATIVE (NEGATIVE); KETONES,URINE 80 mg/dL (NEGATIVE); LEUKOCYTE ESTERASE,URINE NEGATIVE (NEGATIVE); NITRITE,URINE NEGATIVE (NEGATIVE); PROTEIN,URINE >=500 mg/dL (NEGATIVE); URINE SPECIFIC GRAVITY 1.031; UROBILINOGEN,URINE NEGATIVE mg/dL (<2.0)
[2017-02-13 20:32] LABS: BACTERIA,URINE 3+ /HPF
[2017-02-13] MEDS ORDERED: CEFTRIAXONE 1 GM/D5W RTU 1 GM/50 ML RTUPB IV ONE (22:00)
[2017-02-13] MEDS ORDERED: GLUCAGON,HUMAN RECOMB 1 MG INJ SUBCUT PRN (22:01)
[2017-02-13] MEDS ORDERED: DEXTROSE 50%-WATER 25 GM/50 ML DISP.SYRIN IV PRN ×2 (22:01)
[2017-02-13] MEDS ORDERED: DEXTROSE 40% GEL 15 GM TUBE PO PRN ×2 (22:01)
[2017-02-13] MEDS ORDERED: NORMAL SALINE 1000 ML 1,000 ML with THIAMINE HCL 100 MG, MVI, ADULT NO.1 WITH VIT K 10 ... IV ONE ×4 (22:07)
[2017-02-13] MEDS ORDERED: MVI, ADULT NO.1 WITH VIT K INJ 10 ML VIAL IV PRN (22:48)
[2017-02-13] MEDS ORDERED: THIAMINE HCL INJ 200 MG/2 ML VIAL IV PRN (22:49)
[2017-02-13] MEDS ORDERED: FOLIC ACID INJ 5 MG/1 ML 10 ML VIAL IV PRN (22:50)
--- NOTE | 2017-02-13 22:54 | RADIOLOGY REPORT (SQ) ---
EXAM DESCRIPTION: U/S OB TRANSVAG W/DOPPLER COMPLETED DATE/TIME: 02/13/2017 10:37 pm REASON FOR STUDY: , vomiting, UTI COMPARISON: None. TECHNIQUE: Endovaginal static and realtime grayscale images acquired of the pelvis. Additional selec atilio spectral and color Doppler images recorded. All images stored on PACs. bHCG: None available LIMITATIONS: None. FINDINGS: FETUS: Living intrauterine . EGA: 6 weeks 3 days by crown-rump length AMINA: 10/06/2017 FHR: 137 beats per minute. SUBCHORIONIC BLEED: No SIZE OF BLEED: Not applicable. UTERUS: No masses. No anomalies. Uterus measures 8 x 5 x 7 cm in size. CERVICAL LENGTH: 3.2 cm Closed. RIGHT ADNEXA: Normal ovary with normal vascular flow. Right ovary 3.1 x 1.5 x 1.8 cm in size. No adnexal free fluid. No adnexal masses. LEFT ADNEXA: Normal ovary with normal vascular flow. Left ovary 2.9 x 2 x 1.9 cm in size. No adnexal free fluid. No adnexal masses. FREE FLUID: None. OTHER: No other significant finding. IMPRESSION: LIVING INTRAUTERINE . EGA 6 weeks 3 days Trimester of : First - 0 to 13 weeks. TECHNICAL DOCUMENTATION: JOB ID: [id number] [employer]- All Rights Reserved
[2017-02-13] MEDS ORDERED: INFLUENZA ADLT QUAD (36MOS+) 2017-18 VAC 0.5 ML SYR IM PRN (23:56)
[2017-02-14] MEDS: ONDANSETRON HCL INJ/PF 4 MG/2 ML SDV IV PRN ×5 (00:05→21:23)
[2017-02-14] MEDS: NORMAL SALINE 1000 ML 1,000 ML IV PRN ×2 (01:40→06:21)
--- NOTE | 2017-02-14 02:24 | PDOC H&P ---
History of Present Illness Admission Date/PCP: 02/13/17 21:27 Patient complains of: nausea, vomiting, bladder infection History of Present Illness: BRENDAN VILLANUEVA is a 26 yo 7+0ega by US on 02/05/2017 at 5+6ega and giving AMINA 10/02/2017 and not c/w LMP 01/02/2017 which gives AMINA 10/09/2017 presents for 4th time in a week to the ER withh vomiting for a week. She was seen 02/09 - 1 liter NS given and enema given was able to have BM. Still feels like she is constipated. She reports burning in esophogus area with of sensation of something stuck in lower esophogus. over the counter B6 did not help. No hx hyperemesis gravidarum with her son. Visiting from [facility]. Going back to [facility] next week hopefully - She reports that mother is buying her a bus ticket with her next paycheck. Spotting Vaginal bleeding 2 days ago, 4th time 1 week. Had US 02-05 showing 5 week 6 day viable fetus but only FHR of 99 and subchorionic hemorrhage noted. A positive. No bleeding today. Whole upper abdomen hurts due to patient vomiting a lot per report - none witnessed in ER or on floor at present. SHe reports that she was taking B6 every 8 hours at home without relief. LMP 01/02/2017 Past Medical History LMP: 01/02/2017 Gynecological Infection: No 2 Delivery: Other - terminated 3 Delivery: Other - terminated Cardiac Medical History: Reports: None Pulmonary Medical History: Reports: Asthma EENT Medical History: Denies: None, Cataracts, Eyes, Ears, Nose, Throat, Other Neurological Medical History: Denies: None, Hemorrhagic CVA, Ischemic CVA, Migraine, Multiple Sclerosis, Seizures, Other Endocrine Medical History: Denies: None, Diabetes Mellitus Type 1, Diabetes Mellitus Type 2, Gestational Diabetes, Hyperthyroidism, Hypothyroidism, Obesity, Other Renal/ Medical History: Denies: None, Chronic Kidney Disease, End Stage Renal Disease, Nephrolithiasis, Other Malignancy Medical History: Denies: None, Bone Cancer, Brain Cancer, Breast Cancer, Cervical Cancer, Colorectal Cancer, Leukemia, Liver Cancer, Lung Cancer, Lymphoma, Ovarian Cancer , Pancreatic Cancer, Renal (Kidney) Cancer, Skin Cancer, Other GI Medical History: Denies: None, Cirrhosis, Crohn's Disease, Diverticulitis, Gastroesophageal Reflux Disease, Hepatitis, Hiatal Hernia, Peptic Ulcer Disease, Ulcerative Colitis, Other Musculoskeltal Medical History: Denies: None, Arthritis, Fibromyalgia, Gout, Other Skin Medical History: Denies: None, Eczema, Psoriasis, Other Psychiatric Medical History: Denies: None, Alcohol Dependency, Attention Deficit Hyperactivity Disorder, Bipolar Disorder, Dementia, Depression, General Anxiety Disorder, Personality Disorder, Post Traumatic Stress Disorder, Schizoaffective Disorder, Substance Abuse, Tobacco Dependency, Other Traumatic Medical History: Denies: None, Gunshot Wound, Pneumothorax, Stab Wound, Traumatic Brain Injury , Other Infectious Medical History: Denies: None, Clostridium Difficile, Hepatitis B, Hepatitis C, HIV, Methicillin-Resistant Staph Aureus, Vancomycin-Resistant Enterococci, Other Past Surgical History Past Surgical History: Reports: Other - wisdom teeth, ETOP x 2 Social History Smoking Status: Never Smoker Frequency of Alcohol Use: None Hx Recreational Drug Use: No Drugs: None Hx Prescription Drug Abuse: No - Advance Directive Resuscitation Status: Full Code Family History Family History: Reviewed & Not Pertinent Parental Family History Reviewed: No Children Family History Reviewed: NA Sibling(s) Family History Reviewed.: NA Medication/Allergy Home Medications: No Home Medications 02/13/17 Allergies/Adverse Reactions: No Known Allergies Allergy (Verified 02/13/17 13:17) Physical Exam - Physical Exam Vital Signs: Temp Pulse Resp BP Pulse Ox 97.7 F 112 H 17 114/73 100 02/13/17 13:23 02/13/17 13:23 02/13/17 19:02 02/13/17 19:02 02/13/17 19:02 General appearance: PRESENT: no acute distress, well-developed, well-nourished Head exam: PRESENT: atraumatic, normocephalic Eye exam: PRESENT: conjunctiva pink, EOMI, PERRLA. ABSENT: scleral icterus Neck exam: PRESENT: full ROM. ABSENT: carotid bruit, JVD, lymphadenopathy, thyromegaly Respiratory exam: PRESENT: clear to auscultation sheree, symmetrical, unlabored Cardiovascular exam: PRESENT: RRR. ABSENT: diastolic murmur, rubs, systolic murmur Vascular exam: PRESENT: normal capillary refill GI/Abdominal exam: PRESENT: normal bowel sounds, soft, other - no CVAT. ABSENT : distended, guarding, mass, organolmegaly, rebound, tenderness Rectal exam: PRESENT: deferred Extremities exam: PRESENT: full ROM. ABSENT: calf tenderness, clubbing, pedal edema Musculoskeletal exam: PRESENT: ambulatory Neurological exam: PRESENT: alert, awake, oriented to person, oriented to place , oriented to time, oriented to situation, CN II-XII grossly intact. ABSENT: motor sensory deficit Psychiatric exam: PRESENT: appropriate affect, normal mood. ABSENT: homicidal ideation, suicidal ideation Skin exam: PRESENT: dry, intact, warm. ABSENT: cyanosis, rash Result Impressions: AMINA 10/06/2017, 6+3ega, no subchorionic hemorrhage, FHR 137 Status: Imported from PACS Assessment & Plan - Diagnosis (1) Urinary tract infection affecting care of mother in first trimester, antepartum Plan: Rocephin 1gram IV BID, urine culture pending. Pt with tachycardia and mild hyoptension in ER - responded to IVF. Lactic acid normal. Cap Refill normal. Mildly elevated WBC count. Repeat labs in am. No CVAT. If improves tomorrow may be abld to discharge on Macrobid 100mg po BID unless bacteria not sensitive to macrobid. urine culture and blood cultures pending. (2) Hyperemesis affecting , antepartum Is this a current diagnosis for this admission?: Yes Plan: NPO - however pt now begging for food despite reporting nausea. Ok to try popsicle. Reviewed with pt that if n/v persists with popsicle would need to remain NPO. Banana bag ordered for am. anitemetics ordered. Reviewed home med use and advised dosing of Doxylamine and B6. Pt advised to see medical care upon arrival back home. - Time Time Spent: 30 to 50 Minutes Critical Time spent with patient: Less than 15 minutes Medications reviewed and adjusted accordingly: No Anticipated discharge: Home Within: within 24 hours - Inpatient Certification Based on my medical assessment, after consideration of the patient's comorbidities, presenting symptoms, or acuity I expect that the services needed warrant INPATIENT care.: Yes I certify that my determination is in accordance with my understanding of Medicare's requirements for reasonable and necessary INPATIENT services [42 CFR 412.3e].: Yes Medical Necessity: Failure to Improve With Outpatient Therapy, Need For IV Fluids, Need for IV Antibiotics Post Hospital Care: D/C [employer]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
[2017-02-14 07:24] LABS: HEMATOCRIT 32.9 % (36.0-47.0); HGB HCT DIFFERENCE 0.1; MEAN CORPUSCULAR HEMOGLOBIN 28.1 pg (27.0-33.4); MEAN CORPUSCULAR HGB CONC 33.5 g/dL (32.0-36.0); MEAN CORPUSCULAR VOLUME 84 fl (80-97); RED BLOOD COUNT 3.92 10^6/uL (3.72-5.28); RED CELL DISTRIBUTION WIDTH 13.2 % (11.5-14.0); WHITE BLOOD COUNT 12.3 10^3/uL (4.0-10.5)
[2017-02-14 07:31] LABS: ANION GAP 12 (5-19); BLOOD UREA NITROGEN 8 mg/dL (7-20); CARBON DIOXIDE 18 mmol/L (22-30); CHLORIDE 110 mmol/L (98-107); CREATININE RESULT 0.59 mg/dL (0.52-1.25); GLUCOSE 111 mg/dL (75-110); POTASSIUM 3.4 mmol/L (3.6-5.0); SODIUM 140.4 mmol/L (137-145)
[2017-02-14] MEDS ORDERED: NORMAL SALINE 1000 ML 1,000 ML with THIAMINE HCL 100 MG, MVI, ADULT NO.1 WITH VIT K 10 ... IV ONE ×4 (09:00)
[2017-02-14] MEDS ORDERED: GLYCERIN (ADULT) SUPP.RECT PR PRN (09:33)
[2017-02-14] MEDS ORDERED: DOCUSATE SODIUM 100 MG CAPSULE PO PRN (09:33)
[2017-02-14] MEDS ORDERED: PROMETHAZINE HCL INJ 25 MG/1 ML VIAL IV ONE ×2 (10:00→23:30)
[2017-02-14] MEDS ORDERED: POLYETHYLENE GLYCOL 3350 POWDER 17 GM/1 PACKET PO ONE (10:00)
[2017-02-14] MEDS ORDERED: POTASSI CL 20 MEQ/50 ML RIDER 20 MEQ/50 ML RTUPB IV ONE (10:00)
[2017-02-14] MEDS: CEFTRIAXONE 1 GM/D5W RTU 1 GM/50 ML RTUPB IV SCH ×2 (10:25→17:22)
[2017-02-14] MEDS: FAMOTIDINE INJ/PF 20 MG/2 ML SDV IV SCH (10:25)
[2017-02-14] MEDS ORDERED: NORMAL SALINE 1000 ML 1,000 ML with THIAMINE HCL 100 MG, MVI, ADULT NO.1 WITH VIT K 10 ... IV SCH ×4 (11:00)
[2017-02-14] MEDS: FAMOTIDINE 20 MG TABLET PO SCH ×2 (11:02→21:23)
--- NOTE | 2017-02-14 11:17 | PDOC PROGRESS REPORT ---
Subjective Progress Note for:: 02/14/17 - Vomited this AM. Wants to eat. Complains of epigastric pain/tightness. Reason For Visit: EARLY IUP. N/V, ELEVATED WBC, UTI Physical Exam - Physical Exam Vital Signs: Temp Pulse Resp BP Pulse Ox 98.0 F 53 L 15 103/63 100 02/14/17 07:51 02/14/17 07:51 02/14/17 07:51 02/14/17 07:51 02/14/17 07:51 Intake & Output 02/13/17 02/14/17 02/15/17 06:59 06:59 06:59 Output Total 300 Balance -300 Weight 81.5 kg Result Laboratory Results: 02/14/17 06:49 02/14/17 06:49 02/14/17 02/14/17 02/14/17 00:25 06:49 06:49 WBC 12.3 H RBC 3.92 Hgb 11.0 L D Hct 32.9 L MCV 84 MCH 28.1 MCHC 33.5 RDW 13.2 Plt Count 203 Sodium 140.4 Potassium 3.4 L Chloride 110 H Carbon Dioxide 18 L Anion Gap 12 BUN 8 Creatinine 0.59 Est GFR ( Amer) > 60 Est GFR (Non-Af Amer) > 60 Glucose 111 H Lactic Acid 1.0 Calcium 9.0 Impressions: Transvaginal US 02/13/17 21:52 IMPRESSION: LIVING INTRAUTERINE . EGA 6 weeks 3 days Trimester of : First - 0 to 13 weeks. Assessment & Plan - Diagnosis (2) Hyperemesis affecting , antepartum Is this a current diagnosis for this admission?: Yes (3) Urinary tract infection affecting care of mother in first trimester, antepartum Is this a current diagnosis for this admission?: Yes - Time Time Spent with patient: Less than 15 minutes - Inpatient Certification Based on my medical assessment, after consideration of the patient's comorbidities, presenting symptoms, or acuity I expect that the services needed warrant INPATIENT care.: Yes I certify that my determination is in accordance with my understanding of Medicare's requirements for reasonable and necessary INPATIENT services [42 CFR 412.3e].: Yes Medical Necessity: Need For IV Fluids, Need for IV Antibiotics
[2017-02-15] MEDS: NORMAL SALINE 1000 ML 1,000 ML IV PRN (01:01)
[2017-02-15] MEDS: ONDANSETRON HCL INJ/PF 4 MG/2 ML SDV IV PRN ×2 (06:31→16:06)
[2017-02-15 09:34] LABS: ABSOLUTE BASOPHILS # (AUTO) 0.1 10^3/uL (0.0-0.2); ABSOLUTE EOSINOPHILS # (AUTO) 0.1 10^3/uL (0.0-0.6); ABSOLUTE LYMPHOCYTES (AUTO) 2.6 10^3/uL (0.5-4.7); ABSOLUTE MONOCYTES (AUTO) 0.5 10^3/uL (0.1-1.4); ABSOLUTE NEUT (AUTO) 4.9 10^3/uL (1.7-8.2); BASOPHILS % (AUTO) 0.7 % (0-2); EOSINOPHILS % (AUTO) 0.8 % (0-6); HEMATOCRIT 28.6 % (36.0-47.0); HEMOGLOBIN 9.7 g/dL (12.0-15.5); HGB HCT DIFFERENCE 0.5; MEAN CORPUSCULAR HGB CONC 33.8 g/dL (32.0-36.0); MEAN CORPUSCULAR VOLUME 86 fl (80-97); RED BLOOD COUNT 3.33 10^6/uL (3.72-5.28); RED CELL DISTRIBUTION WIDTH 13.3 % (11.5-14.0); SEGMENTED NEUTROPHILS % (AUTO) 60.5 % (42-78); WHITE BLOOD COUNT 8.2 10^3/uL (4.0-10.5)
[2017-02-15 09:47] LABS: ALANINE AMINOTRANSFERASE 51 U/L (9-52); ALBUMIN 2.8 g/dL (3.5-5.0); ALKALINE PHOSPHATASE 58 U/L (38-126); AMYLASE 31 U/L (30-110); ANION GAP 10 (5-19); ASPARTATE AMINO TRANSFERASE 30 U/L (14-36); BILIRUBIN,DIRECT 0.3 mg/dL (0.0-0.4); BILIRUBIN,TOTAL 0.7 mg/dL (0.2-1.3); BLOOD UREA NITROGEN 5 mg/dL (7-20); CALCIUM 8.3 mg/dL (8.4-10.2); CARBON DIOXIDE 21 mmol/L (22-30); CHLORIDE 109 mmol/L (98-107); GLUCOSE 100 mg/dL (75-110); LIPASE 103.3 U/L (23-300); SODIUM 140.3 mmol/L (137-145); TOTAL PROTEIN 5.2 g/dL (6.3-8.2)
[2017-02-15 09:54] LABS: POTASSIUM 2.8 mmol/L (3.6-5.0)
[2017-02-15] MEDS: CEFTRIAXONE 1 GM/D5W RTU 1 GM/50 ML RTUPB IV SCH (10:11)
[2017-02-15] MEDS: FAMOTIDINE 20 MG TABLET PO SCH (10:11)
[2017-02-15] MEDS: FAMOTIDINE INJ/PF 20 MG/2 ML SDV IV SCH (10:44)
[2017-02-15] MEDS: POTASSIUM CHLORIDE 20 MEQ/50 ML RTU IV SCH ×2 (11:46→13:15)
[2017-02-15 16:11] VITALS: BP 125/68
[2017-02-15 16:36] LABS: ANION GAP 7 (5-19); BLOOD UREA NITROGEN 6 mg/dL (7-20); CALCIUM 8.5 mg/dL (8.4-10.2); CARBON DIOXIDE 22 mmol/L (22-30); CHLORIDE 109 mmol/L (98-107); CREATININE RESULT 0.54 mg/dL (0.52-1.25); GLUCOSE 78 mg/dL (75-110); SODIUM 138.4 mmol/L (137-145)
[2017-02-15 16:47] LABS: POTASSIUM 3.8 mmol/L (3.6-5.0)
--- NOTE | 2017-02-15 17:31 | PDOC PROGRESS REPORT ---
Subjective Progress Note for:: 02/15/17 Subjective:: doing well, one episode of emesis yesterday. Pt has been having mild nausea but no further emesis despite repetitive orders for each meal from cafeteria - including scrambled eggs with cheese and cheeseburger. She was instructed to eat more bland foods - however still has not had emesis with these foods. Reason For Visit: EARLY IUP. N/V, ELEVATED WBC, UTI Physical Exam - Physical Exam Vital Signs: Temp Pulse Resp BP Pulse Ox 98.1 F 63 16 110/61 100 02/15/17 08:10 02/15/17 08:10 02/15/17 08:10 02/15/17 08:10 02/15/17 08:10 Intake & Output 02/14/17 02/15/17 02/16/17 06:59 06:59 06:59 Intake Total 150 Output Total 300 700 Balance -300 -550 Weight 81.5 kg General appearance: PRESENT: no acute distress, well-developed, well-nourished Head exam: PRESENT: atraumatic, normocephalic Respiratory exam: PRESENT: clear to auscultation sheree, symmetrical, unlabored. ABSENT: retraction Cardiovascular exam: PRESENT: RRR. ABSENT: diastolic murmur, rubs, systolic murmur Pulses: PRESENT: normal dorsalis pedis pul, +2 pedal pulses bilateral Vascular exam: PRESENT: normal capillary refill GI/Abdominal exam: PRESENT: normal bowel sounds, soft. ABSENT: distended, guarding, mass, organolmegaly, rebound, tenderness Rectal exam: PRESENT: deferred Extremities exam: PRESENT: full ROM. ABSENT: calf tenderness, clubbing, pedal edema Neurological exam: PRESENT: alert, awake, oriented to person, oriented to place , oriented to time, oriented to situation, CN II-XII grossly intact. ABSENT: motor sensory deficit Psychiatric exam: PRESENT: appropriate affect, normal mood. ABSENT: homicidal ideation, suicidal ideation Skin exam: PRESENT: dry, intact, warm. ABSENT: cyanosis, rash Result Laboratory Results: 02/14/17 06:49 02/14/17 06:49 Impressions: Transvaginal US 02/13/17 21:52 IMPRESSION: LIVING INTRAUTERINE . EGA 6 weeks 3 days Trimester of : First - 0 to 13 weeks. Status: Imported from PACS Assessment & Plan - Diagnosis (1) Urinary tract infection affecting care of mother in first trimester, antepartum Is this a current diagnosis for this admission?: Yes Plan: Rocephin 1gram IV BID, urine culture pending but preliminary negative Pt with tachycardia and mild hyoptension in ER - responded to IVF. Lactic acid normal. Cap Refill normal. Mildly elevated WBC count. Repeat labs today - normal WBC. No CVAT. Discharge to home on macrobid - f/u with OB upon return home (2) Hyperemesis affecting , antepartum Is this a current diagnosis for this admission?: Yes Plan: Reviewed home med use and advised dosing of Doxylamine and B6. Pt has more than tolerated regular diet with onely one episode of emesis yesterday. Reviewed BRAT diet multiple times but pt persisted in foods such as orange juice and eggs with cheese, and cheeseburger. Pt advised to see medical care upon arrival back home. (3) Hypokalemia Is this a current diagnosis for this admission?: Yes Plan: likely due to prior n/v per pt reports before admission and compounded by IVF. Corrected with K Landen and now potassium normal after repeat Krider today. Meets criteria for discharge - Time Time Spent with patient: 25-34 minutes Medications reviewed and adjusted accordingly: Yes Anticipated discharge: Home Within: within 24 hours - Inpatient Certification Based on my medical assessment, after consideration of the patient's comorbidities, presenting symptoms, or acuity I expect that the services needed warrant INPATIENT care.: No I certify that my determination is in accordance with my understanding of Medicare's requirements for reasonable and necessary INPATIENT services [42 CFR 412.3e].: No Post Hospital Care: D/C Services Program Manager Documentation - Plan Summary Plan Summary: Discharge to home
--- NOTE | 2017-02-15 17:36 | PDOC DISCHARGE SUMMARY ---
General - Admit/Disc Date/PCP Admission Date/Primary Care Provider: 02/15/17 09:07 Discharge Date: 02/15/17 - Discharge Diagnosis (1) Urinary tract infection affecting care of mother in first trimester, antepartum Is this a current diagnosis for this admission?: Yes Summary: Rocephin 1gram IV BID, urine culture pending but preliminary negative Pt with tachycardia and mild hyoptension in ER - responded to IVF. Lactic acid normal. Cap Refill normal. Mildly elevated WBC count. Repeat labs today - normal WBC. No CVAT. Discharge to home on macrobid - f/u with OB upon return home (2) Hyperemesis affecting , antepartum Is this a current diagnosis for this admission?: Yes Summary: Reviewed home med use and advised dosing of Doxylamine and B6. Pt has more than tolerated regular diet with onely one episode of emesis yesterday. Reviewed BRAT diet multiple times but pt persisted in foods such as orange juice and eggs with cheese, and cheeseburger. Pt advised to see medical care upon arrival back home. (3) Hypokalemia Is this a current diagnosis for this admission?: Yes Summary: likely due to prior n/v per pt reports before admission and compounded by IVF. Corrected with K Landen and now potassium normal after repeat Krider today. Meets criteria for discharge - Additional Information Resuscitation Status: Full Code Discharge Diet: As Tolerated Discharge Activity: Activity As Tolerated, Pelvic Rest, Walk Frequently Home Medications: Docusate Sodium [Colace 100 mg Capsule] 100 mg PO BIDP PRN 30 Days #60 capsule 02/15/17 Doxylamine Succinate [Unisom] 12.5 mg PO TID 30 Days #45 tablet 02/15/17 Famotidine [Pepcid 20 mg Tablet] 20 mg PO Q12 30 Days #60 tablet 02/15/17 Nitrofurantoin Monohyd/M-Cryst [Macrobid 100 mg Capsule] 100 mg PO BID 10 Days # 20 capsule 02/15/17 Promethazine HCl [Phenergan 25 mg Supp.rect] 1 supp TN Q6H 5 Days #20 supp.rect 02/15/17 Pyridoxine HCl (Vitamin B6) [Vitamin B-6] 25 mg PO TID 30 Days #90 tablet History of Present Illness History of Present Illness: BRENDAN VILLANUEVA is a 26 yo 7+0ega by US on 02/05/2017 at 5+6ega and giving AMINA 10/02/2017 and not c/w LMP 01/02/2017 which gives AMINA 10/09/2017 presents for 4th time in a week to the ER with vomiting for a week. She was seen 02/09 - 1 liter NS given and enema given was able to have BM. Still feels like she is constipated. She reports burning in esophogus area with of sensation of something stuck in lower esophogus. over the counter B6 did not help. No hx hyperemesis gravidarum with her son. Visiting from [facility]. Going back to [facility] next week hopefully - She reports that mother is buying her a bus ticket with her next paycheck. Spotting Vaginal bleeding 2 days ago, 4th time 1 week. Had US 02-05 showing 5 week 6 day viable fetus but only FHR of 99 and subchorionic hemorrhage noted. A positive. No bleeding today. Whole upper abdomen hurts due to patient vomiting a lot per report - none witnessed in ER or on floor at present. SHe reports that she was taking B6 every 8 hours at home without relief. Hospital Course Hospital Course: Admitted for IVF and antiemetics. Pt began eating next am with only one episode of emesis. doing well, one episode of emesis yesterday. Pt has been having mild nausea but no further emesis despite repetitive orders for each meal from cafeteria - including scrambled eggs with cheese and cheeseburger. She was instructed to eat more bland foods - however still has not had emesis with these foods. Physical Exam - Physical Exam Vital Signs: Temp Pulse Resp BP Pulse Ox 98.0 F 71 16 125/68 100 02/15/17 16:00 02/15/17 16:00 02/15/17 16:00 02/15/17 16:00 02/15/17 16:00 General appearance: PRESENT: no acute distress, well-developed, well-nourished Head exam: PRESENT: atraumatic, normocephalic Respiratory exam: PRESENT: clear to auscultation sheree, symmetrical, unlabored. ABSENT: rales, retraction Cardiovascular exam: PRESENT: RRR. ABSENT: diastolic murmur, rubs, systolic murmur Pulses: PRESENT: normal dorsalis pedis pul, +2 pedal pulses bilateral Vascular exam: PRESENT: normal capillary refill GI/Abdominal exam: PRESENT: normal bowel sounds, soft. ABSENT: distended, guarding, mass, organolmegaly, rebound, tenderness Rectal exam: PRESENT: deferred Extremities exam: PRESENT: full ROM. ABSENT: calf tenderness, clubbing, pedal edema Neurological exam: PRESENT: alert, awake, oriented to person, oriented to place , oriented to time, oriented to situation, CN II-XII grossly intact. ABSENT: motor sensory deficit Psychiatric exam: PRESENT: appropriate affect, normal mood. ABSENT: homicidal ideation, suicidal ideation Skin exam: PRESENT: dry, intact, warm. ABSENT: cyanosis, rash Result Laboratory Results: 02/15/17 09:26 02/15/17 15:57 02/15/17 02/15/17 02/15/17 09:26 09:26 15:57 WBC 8.2 RBC 3.33 L Hgb 9.7 L Hct 28.6 L MCV 86 MCH 29.0 MCHC 33.8 RDW 13.3 Plt Count 139 L Seg Neutrophils % 60.5 Lymphocytes % 32.0 Monocytes % 6.0 Eosinophils % 0.8 Basophils % 0.7 Absolute Neutrophils 4.9 Absolute Lymphocytes 2.6 Absolute Monocytes 0.5 Absolute Eosinophils 0.1 Absolute Basophils 0.1 Sodium 140.3 138.4 Potassium 2.8 L* 3.8 D Chloride 109 H 109 H Carbon Dioxide 21 L 22 Anion Gap 10 7 BUN 5 L 6 L Creatinine 0.60 0.54 Est GFR ( Amer) > 60 > 60 Est GFR (Non-Af Amer) > 60 > 60 Glucose 100 78 Calcium 8.3 L 8.5 Total Bilirubin 0.7 AST 30 ALT 51 Alkaline Phosphatase 58 Total Protein 5.2 L Albumin 2.8 L Amylase 31 Lipase 103.3 Impressions: Transvaginal US 02/13/17 21:52 IMPRESSION: LIVING INTRAUTERINE . EGA 6 weeks 3 days Trimester of : First - 0 to 13 weeks. Status: Imported from PACS Plan Time Spent: Less than 30 Minutes
== END 2017-02-15 18:12 | disposition home or self-care (01) | DRG 775 ==
LOC: ER 13:14 → EH 21:27 → 2S 23:00 → OBSVTOIN 02-15 09:07
PROVIDERS: ADMIT Student in an Organized Health Care Education/Training Program; ATTEND Student in an Organized Health Care Education/Training Program
DX: O23.41 Unspecified infection of urinary tract in pregnancy, first trimester (principal); O99.52 Diseases of the respiratory system complicating childbirth; J45.909 Unspecified asthma, uncomplicated; Z3A.01 Less than 8 weeks gestation of pregnancy
CPT/HCPCS: 36415; 76817; 80048; 80053; 81001; 82150; 83605; 83690; 85025; 85027; 87040; 87086; 93976; 96361; 96365; 96375; 96376; 99285; G0378; J0696; J1100; J1200; J2405; J2550; J2765; J3411; J3480; J3490; J7030; S0028